=== PATIENT | male | born 1965 | race Caucasian/White ===

== ENCOUNTER 2023-04-17 10:12 | Emergency (ER) | payer OTHER ==
[~2023-04-17] VITALS: Ht 165.1 cm; Wt 74.8 kg
[2023-04-17 10:37] VITALS: BP 192/102; PULSE 62; RESP 16; TEMP 97.9; O2SAT 99
[2023-04-17] MEDS: MECLIZINE 25 MG TAB PO ONE (11:50)
[2023-04-17] MEDS ORDERED: LISI-486 PO (12:34)
[2023-04-17] MEDS ORDERED: MECL-303 PO (12:34)
[2023-04-17] MEDS: lisinopriL 20 MG TAB PO ONE (12:42)
[2023-04-17 12:57] VITALS: BP 198/107; PULSE 57; RESP 18; TEMP 97.8; O2SAT 97
== END 2023-04-17 12:57 | disposition home or self-care (01) ==
LOC: MED 10:12
DX: H60.91 Unspecified otitis externa, right ear (principal); Z79.899 Other long term (current) drug therapy
CPT/HCPCS: 82948; 93005; 99283; J8597; 99284